=== PATIENT | male | born 1965 | race Caucasian/White ===

== ENCOUNTER 2022-04-10 06:45 | Day surgery (SDC) | payer BC ==
[~2022-04-10 06:45] MED LIST: Lactated Ringers 1,000 ML IV SCH; Sodium Chloride 0.9% 10 ML Syringe FLUSH PRN
[2022-04-10] MEDS ORDERED: Propofol 200 MG/20 ML SDV IV ONE (06:46)
[2022-04-10] MEDS ORDERED: Lidocaine 2% 100 MG/5 ML Syringe IVPUSH ONE (06:46)
[2022-04-10] MEDS ORDERED: Midazolam 1 MG/ML 2 ML SDV IV ONE (06:46)
== END 2022-04-10 08:35 | disposition home or self-care (01) ==
LOC: FB.SDS 06:45
PROVIDERS: ATTEND Surgery
DX: K29.30 Chronic superficial gastritis without bleeding (principal); K21.00 Gastro-esophageal reflux disease with esophagitis, without bleeding; E66.9 Obesity, unspecified; Z98.890 Other specified postprocedural states; Z68.36 Body mass index [BMI] 36.0-36.9, adult; Z79.899 Other long term (current) drug therapy
CPT/HCPCS: 00731-QZ; 88305; 88313; 88342; J2250; J2704; J7120